=== PATIENT | male | born 1955 | race Caucasian/White ===

== ENCOUNTER 2016-06-16 10:18 | Emergency (ER) | payer MEDICARE ==
[2016-06-16 10:43] LABS: HEMOGLOBIN 16.3 gm/dl (14.0-17.5); RED BLOOD COUNT 5.56 M/UL (4.20-5.50); WHITE BLOOD COUNT 11.6 K/UL (4.5-11.0)
[2016-06-16 11:06] LABS: BUN/CREATININE RATIO 33 (0-10)
== END 2016-06-16 12:50 | disposition home or self-care (01) ==
LOC: ER1 10:18
PROVIDERS: Emergency Medicine
DX: G45.9 Transient cerebral ischemic attack, unspecified (principal); I10 Essential (primary) hypertension; E11.9 Type 2 diabetes mellitus without complications; F17.200 Nicotine dependence, unspecified, uncomplicated; Z90.49 Acquired absence of other specified parts of digestive tract
CPT/HCPCS: 36415; 70450; 71010; 80053; 82550; 82553; 83874; 84484; 85025; 93005; 99284